=== PATIENT | female | born 1985 ===

== ENCOUNTER → 2018-03-20 21:39 | Outpatient (REF) | payer OTHER, SELFPAY ==
[2018-03-20 22:03] LABS: HEMOLYSIS < 15 (0-50); Iron 196 ug/dL (37-170)
[2018-03-20 22:12] LABS: Add Manual Diff / Slide Review NO; Basophils Absolute Auto 100 /uL (0-100); Basophils Percent Auto 1.8 % (0-2); Eosinophils Absolute Auto 500 /uL (0-450); Eosinophils Percent Auto 9.2 % (2-4); Hematocrit 43.1 % (36-46); Hemoglobin 14.3 g/dL (12.0-16.0); Lymphocytes Absolute Auto 1900 /uL (1100-4500); Lymphocytes Percent Auto 31.8 % (25-40); Mean Corpuscular HGB Conc 33.2 % (30-36); Mean Corpuscular Hemoglobin 29.7 PG (26-34); Mean Corpuscular Volume 89.6 fL (80-100); Monocytes Absolute Auto 300 /uL (0-900); Monocytes Percent Auto 5.5 % (3-14); Neutrophils Absolute Auto 3100 /uL (1500-7000); Neutrophils Percent Auto 51.7 % (50-75); Platelet Count 294 X10^3/uL (150-400); Red Blood Cell Count 4.81 X10^6/uL (4.0-5.2); Red Cell Distribution Width 13.4 % (11.6-14.8); White Blood Cell Count 5.9 X10^3/uL (4.5-11.0)
[2018-03-20 22:14] LABS: Percent Iron Saturation 46 % (15-50); Total Iron Binding Capacity 427 ug/dL (265-497); Transferrin 347 mg/dL (206-381)
[2018-03-20 22:40] LABS: Ferritin 28.4 ng/mL (6.27-137)
== END ==
LOC: LAB 21:39
PROVIDERS: Visit Provider Naturopath
DX: L65.9 Nonscarring hair loss, unspecified (principal)
CPT/HCPCS: 36415; 82728; 83540; 83550; 85025